=== PATIENT | male | born 1965 | race Caucasian/White ===

== ENCOUNTER 2016-11-22 08:53 | Day surgery (SDC) | payer BC ==
[~2016-11-22] VITALS: Ht 185.4 cm; Wt 140.6 kg
[~2016-11-22 08:53] MED LIST: CEFAZOLIN 2GM PREMIX 50 ML IV PRN; FENTANYL PF 100 MCG/2 ML VIAL. IV PRN; HYDROMORPHONE 2 MG/ML VIAL. IV PRN; IV RINGERS,LACTATED 1000ML 1,000 ML IV SCH; LIDOCAINE 1% 1 ML SYRINGE. ID PRN; LISI1TAB5 PO; MORPHINE SULFATE 2 MG/ML DISP.SYRIN. IV PRN; ONDANSETRON PF 4 MG/2 ML VIAL. IV PRN; PROCHLORPERAZINE 10 MG/2 ML VIAL. IV PRN
[2016-11-22] MEDS ORDERED: MIDAZOLAM HCL 2 MG/2 ML VIAL. ONE (09:08)
[2016-11-22] MEDS ORDERED: DEXAMETHASONE SOD PHOS 20 MG/5 ML VIAL. ONE (09:08)
[2016-11-22] MEDS ORDERED: ONDANSETRON PF 4 MG/2 ML VIAL. ONE (09:08)
[2016-11-22] MEDS ORDERED: PROPOFOL 40 ML IV ONE (09:08)
[2016-11-22] MEDS ORDERED: FENTANYL PF 100 MCG/2 ML VIAL. ONE (09:08)
[2016-11-22] MEDS ORDERED: LIDOCAINE 2% 100 MG/5 ML DISP.SYRIN. ONE (09:08)
[2016-11-22] MEDS ORDERED: ROCURONIUM 50 MG/5 ML VIAL. ONE (09:09)
[2016-11-22] MEDS ORDERED: SUCCINYLCHOLINE 200 MG/10 ML VIAL. ONE (09:09)
[2016-11-22] MEDS ORDERED: BUPIVAC MPF-EPI 0.5%-1:200000 30 ML VIAL. ONE (09:42)
[2016-11-22] MEDS ORDERED: ONDA4TAB7 PO (10:28)
[2016-11-22] MEDS ORDERED: OXYC-323 PO (10:28)
[2016-11-22] MEDS ORDERED: MORPHINE SULFATE 10 MG/ML VIAL. ONE (10:40)
[2016-11-22] MEDS ORDERED: PHENYLEPHRINE in 0.9% NACL PF 1 MG/10 ML DISP.SYRIN. IV ONE (10:54)
[2016-11-22] MEDS ORDERED: GLYCOPYRROLATE 1 MG/5 ML VIAL. ONE (10:56)
[2016-11-22] MEDS ORDERED: NEOSTIGMINE METHYLSULFATE 5 MG/5 ML SYRINGE. ONE (10:56)
[2016-11-22 12:07] VITALS: BP 107/61
--- NOTE | 2016-11-22 15:57 | PDOC ---
BRIEF OPERATIVE NOTE Pre-Op Diagnosis umb hernia umb hernia repair with mesh marialuisa magaña ebl 5 ivf 1000 almin well to rr stable. RUBIO OROZCO MD Nov 22, 2016 15:57
--- NOTE | 2016-11-22 23:57 | OP ---
DATE OF SURGERY: 11/22/2016 PREOPERATIVE DIAGNOSIS: Umbilical hernia. POSTOPERATIVE DIAGNOSIS: Umbilical hernia. PROCEDURE: Umbilical hernia repair with mesh. SURGEON: Rubio Orozco M.D. ANESTHESIA: General. ESTIMATED BLOOD LOSS: 5 mL. IV FLUIDS: 1000 mL. INDICATIONS: The patient is a 51-year-old male who presents with a symptomatic umbilical hernia that he would like to have repaired. FINDINGS: He had a 1 cm fascial defect, it was repaired with a 4.3 cm Bard Ventralex patch. DESCRIPTION OF PROCEDURE: After informed consent was obtained, the patient was taken to the operating room and placed in supine position. After adequate induction of general anesthesia, he was prepped and draped in the usual sterile fashion. An infraumbilical skin incision was made with a scalpel, subcutaneous tissues dissected with a tonsil. Using a tonsil, the umbilical stalk was encircled and the dermis of the umbilicus was excised from the hernia sac with cautery. The hernia sac contained preperitoneal fat. The preperitoneal fat was reduced through the hernia defect and the under surface of the fascia was cleared with cautery to open up the preperitoneal space. A 4.3 cm Bard Ventralex patch was placed through the defect beneath the level of the fascia. It was sutured to the fascia with 0 Prolene U sutures so that the knots were buried. The fascial defect was closed over the mesh with a 0 Prolene cumasx-sa-avigz fashion. The area was injected with local anesthetic and then the wound was closed. The dermis of the umbilicus was tacked back to the fascia with 2-0 Vicryl sutures. Skin was closed with 4-0 Monocryl in subcuticular fashion. The wound was hemostatic as it was being closed. Sterile dressings were placed, which consisted of Mastisol, Steri-Strips, a tonsil ball and covered with a Tegaderm. He tolerated the procedure well. There were no apparent complications. He was then transferred in stable condition to the recovery room. RUBIO OROZCO MD DR: RADHA/michelle JOB#: [id number] / [id number] BELLA Michelle MD MTDD
== END 2016-11-22 12:27 | disposition home or self-care (01) ==
LOC: SURG 08:53
PROVIDERS: ATTEND Surgery
DX: K42.9 Umbilical hernia without obstruction or gangrene (principal); I10 Essential (primary) hypertension; E66.9 Obesity, unspecified; Z72.89 Other problems related to lifestyle; Z72.0 Tobacco use
CPT/HCPCS: 49585; A4215; J0330; J0690; J1100; J2250; J2270; J2370; J2405; J2704; J2710; J3010; J3490

== ENCOUNTER → 2021-08-08 | Outpatient (CLI) | payer BC ==
[~2021-08-08] MED LIST changes: +ASCO500T4 PO; +ASPI-630 PO; -CEFAZOLIN 2GM PREMIX 50 ML IV PRN; -FENTANYL PF 100 MCG/2 ML VIAL. IV PRN; +GARL10002 PO; -HYDROMORPHONE 2 MG/ML VIAL. IV PRN; +IBUP800T19 PO; -IV RINGERS,LACTATED 1000ML 1,000 ML IV SCH; -LIDOCAINE 1% 1 ML SYRINGE. ID PRN; +LISI1TAB37 PO; -LISI1TAB5 PO; -MORPHINE SULFATE 2 MG/ML DISP.SYRIN. IV PRN; +MULT-121 PO; +OMEG100021 PO; +ONDA4TAB7 PO; -ONDANSETRON PF 4 MG/2 ML VIAL. IV PRN; +OXYC1TAB15 PO; +PREG50CA91 PO; -PROCHLORPERAZINE 10 MG/2 ML VIAL. IV PRN; +TRAM50TA PO
--- NOTE | 2021-08-08 15:40 | EKG ---
[facility] [address] [place] [address] Test Date: 2021-08-08 Test Time: 15:38:25 Pat Name: JARED FARIAS Department: Room: Gender: Supervisor Dry Cleaning: KINGSLEY : 1965 Requested By: KERI PEREZ Order Number: [id number] Reading MD: Aristeo Garcia Measurements Intervals [place] Rate: 65 P: 45 SD: 164 QRS: 23 QRSD: 92 T: 15 QT: 376 QTc: 392 Interpretive Statements SINUS RHYTHM R-S TRANSITION ZONE IN V LEADS DISPLACED TO THE RIGHT MILD NON SPECIFIC ST CHANGES IN THE INFERIOR LEADS Electronically Signed On 08-10-2021 13:28:46 DISTRIBUTOR CLEANER by Aristeo Garcia
[2021-08-08 16:08] LABS: BASO # 0.1 x10^3/uL (0.0-0.2); BASO % 1 % (0-3); EOS # 0.1 x10^3/uL (0.0-0.7); EOS % 1 % (0-3); HEMATOCRIT 44.7 % (39.0-53.0); HEMOGLOBIN 15.2 g/dL (13.0-17.5); LYMPH # 1.7 x10^3/uL (1.0-4.8); LYMPH % 21 % (24-48); MEAN CORPUSCULAR HEMOGLOBIN 30 pg (25-35); MEAN CORPUSCULAR HGB CONC 34 g/dL (31-37); MEAN CORPUSCULAR VOLUME 88 fL (79-100); MONO # 0.7 x10^3/uL (0.0-1.1); MONO % 9 % (0-9); NEUT # 5.5 x10^3/uL (1.8-7.7); NEUT % 68 % (31-73); PLATELET COUNT 199 x10^3/uL (140-400); RED BLOOD COUNT 5.05 x10^6/uL (4.30-5.70); RED CELL DISTRIBUTION WIDTH 13.7 % (11.5-14.5)
[2021-08-08 16:32] LABS: ALBUMIN 4.1 g/dL (3.4-5.0); ALBUMIN/GLOBULIN RATIO 1.4 (1.0-1.7); CREATININE 0.8 mg/dL (0.7-1.3); GFR 100.7; POTASSIUM 4.2 mmol/L (3.5-5.1); TOTAL BILIRUBIN 0.5 mg/dL (0.2-1.0); TOTAL PROTEIN 7.1 g/dL (6.4-8.2)
--- NOTE | 2021-08-10 11:00 | NUR ---
Notified the patient and Jess ROD at Dr Redmond's office regarding positive MRSA in nares. Called in the bactroban and chlorhexidine to patient's pharmacy, [facility]. Instructed patient to start the 5 day treatment on 08/17.
== END ==
LOC: SURGPAT 13:23
PROVIDERS: ATTEND Neurological Surgery
DX: Z01.818 Encounter for other preprocedural examination (principal); M48.04 Spinal stenosis, thoracic region; M54.14 Radiculopathy, thoracic region; Z86.79 Personal history of other diseases of the circulatory system
CPT/HCPCS: 36415; 80053; 85025; 87641; 93005

== ENCOUNTER 2021-08-22 06:57 | Day surgery (SDC) | payer BC ==
[2021-08-09 11:10] VITALS: BP 136/78
[~2021-08-22] VITALS: Ht 182.9 cm; Wt 138.1 kg
[~2021-08-22 06:57] MED LIST changes: +BUPIVACAINE-EPI 0.5% 30 ML VIAL KIT. ONE; +DEXAMETHASONE SOD PHOS 4 MG/ML VIAL ONE; +GELATIN SPONGE SIZE 100. ONE; +HYDROmorphone 2 MG/ML VIAL IVP PRN; +IV RINGERS,LACTATED 1000ML 1,000 ML IV SCH; +KETAMINE HCL IN NACL, ISO-OSM 50 MG/5 ML SYRINGE ONE; +KETOROLAC 60 MG/2 ML VIAL. ONE; +LIDOCAINE 2% PF 5 ML VIAL. ONE; +MIDAZOLAM HCL/PF 2 MG/2 ML VIAL. ONE; +MORPHINE SULFATE 2 MG/ML INJ. IVP PRN; +ONDANSETRON PF 4 MG/2 ML VIAL. ONE; +PHENYLEPHRINE 10 MG/ML VIAL. ONE; +PROCHLORPERAZINE 10 MG/2 ML VIAL. IVP PRN; +PROPOFOL 10 MG/ML (20ML) VIAL. IV ONE; +PROPOFOL 50 ML IV ONE; +REMIFENTANIL 1 MG VIAL. IV ONE; +ROCURONIUM 50 MG/5 ML VIAL. ONE; +SEVOFLURANE > 120 MINUTES. IH ONE; +THROMBIN TOPICAL 20,000 UNIT SPRAY.SYRN KIT TP ONE; +ceFAZolin SODIUM 1 GM in IV NORMAL SALINE 1000ML BAG 1,000 ML IRR ONE; +ceFAZolin SODIUM 3 GM in IV DEXTROSE 5% 100ML 100 ML IV PRN; +fentaNYL PF VIAL 100 MCG/2 ML VIAL IVP PRN; +fentaNYL PF VIAL 100 MCG/2 ML VIAL ONE
[2021-08-22 07:23] VITALS: BP 132/66
[2021-08-22] MEDS ORDERED: [UNRECOGNIZED DRUG - SUPPLY] EXT (07:34)
[2021-08-22] MEDS ORDERED: BACTROBAN NAS (07:34)
[2021-08-22] MEDS ORDERED: GLYCOPYRROLATE 1 MG/5 ML VIAL. ONE (07:41)
[2021-08-22] MEDS ORDERED: NEOSTIGMINE METHYLSULFATE 5 MG/5 ML SYRINGE. ONE (07:41)
[2021-08-22] MEDS ORDERED: PROPOFOL 50 ML IV ONE ×2 (07:42→09:05)
[2021-08-22] MEDS ORDERED: VANCOMYCIN 1GM IVPB FOR OMNI 250 ML IV PRN (08:00)
[2021-08-22] MEDS ORDERED: HYDROmorphone 2 MG/ML VIAL ONE (09:38)
--- NOTE | 2021-08-22 10:14 | HP ---
DATE OF SERVICE: 08/21/2021 ADMIT DATE: 08/22/2021 PREOPERATIVE HISTORY AND PHYSICAL HISTORY OF PRESENT ILLNESS: The patient is a pleasant 56-year-old who has problems with a thoracic radiculopathy. He has known foraminal narrowing at T8-T9 on the right. His pain radiates to the lower thoracic spine and radiates into his right flank and then into the right anterior abdominal region above his umbilicus. There is no problem on the left side. He said that he had an epidural steroid injection recently that helped him for about 2 weeks only. He feels his pain is severe. It can reach 10/10. The problem began in 11/2020. He is taking Lyrica and ibuprofen as well as tramadol. PAST MEDICAL HISTORY: Hypertension. PAST SURGICAL HISTORY: Denies previous surgery. SOCIAL HISTORY: Employed as a quick service technician. Uses chewing tobacco. Drinks alcohol 1-2 times per week. ALLERGIES: No known drug allergies. CURRENT MEDICATIONS: Lisinopril, ibuprofen, tramadol, Lyrica. FAMILY HISTORY: Noncontributory. REVIEW OF SYSTEMS: A 12-point review of systems was performed and is noncontributory except that mentioned above. PHYSICAL EXAMINATION: GENERAL: Alert, pleasant, in no acute distress. HEENT: Head is normocephalic, atraumatic. SKIN: Warm and dry. MUSCULOSKELETAL: Lumbar paraspinal muscle bulk is normal, restricted range of motion of the lumbar spine, [id number] tenderness of the thoracolumbar spine with palpation, normal range of motion of the lower extremities bilaterally. EXTREMITIES: No clubbing, cyanosis or edema. NEUROLOGIC: Alert and oriented x 3. Strength is 5/5 in the lower extremities bilaterally. Sensory was intact to light touch in the lower extremities bilaterally. Reflexes were present and symmetric in the lower extremities bilaterally. Normal gait. IMAGING: I reviewed an MRI scan of the thoracic spine. On that study, there are 2 areas of foraminal narrowing at T8-9 and at T3-4. ASSESSMENT AND PLAN: I feel the foraminal narrowing at T8-9 on the right is responsible for his pain. I recommended a foraminal decompression. I explained that he could go through surgery and be not improved. I outlined the surgery including the technique, the risks involved and the expected postoperative course. He understands and would like to go ahead. ERIN/ALKA/ARELY DR: Rocael TID: [id number]
[2021-08-22] MEDS ORDERED: HYDR-2761 PO (12:03)
[2021-08-22] MEDS ORDERED: DOCU-109 PO (12:03)
[2021-08-22] MEDS ORDERED: METH-562 PO (12:03)
--- NOTE | 2021-08-22 12:05 | DISCH ---
DISCHARGE INSTRUCTIONS Condition on Discharge Condition on Discharge: Stable Activity After Discharge Activity Instructions for Disc: Activity as tolerated, Avoid exertion Other activity instructions: no driving for a week Bathing Instructions: Shower-keep dressing dry Lifting Instructions after Dis: No heavy lifting, No pulling or pushing, Do not lift >10 pounds Diet after Discharge Additional Diet Restrictions: resume home diet Wound Incision Care Wound/Incision Care: Ice to area for comfort Other wound/incision instructi: may remove dressing in 48 hours if dry , no soaking Wound Care Equipment: Sutures/martha Contacting the after DC Call your doctor for: Concerns you may have Follow-Up Follow up with: Dr. Perez's nurse in 2 weeks [phone] KERI PEREZ MD Aug 22, 2021 12:05
[2021-08-22] MEDS ORDERED: HYDROcodone/APAP 5/325MG 1 TAB TABLET PO ONE (12:30)
[2021-08-22] MEDS ORDERED: fentaNYL PF VIAL 100 MCG/2 ML VIAL ONE (12:34)
[2021-08-22] MEDS: fentaNYL PF VIAL 100 MCG/2 ML VIAL IVP PRN ×2 (12:36→12:48)
[2021-08-22] MEDS ORDERED: HYDROcodone/APAP 5/325MG 1 TAB TABLET ONE (12:42)
[2021-08-22 13:55] VITALS: BP 130/73
--- NOTE | 2021-08-26 17:03 | OP ---
DATE OF SURGERY: 08/22/2021 PREOPERATIVE DIAGNOSIS: Thoracic radiculopathy with neural foraminal narrowing, right T8-9. POSTOPERATIVE DIAGNOSIS: Thoracic radiculopathy with neural foraminal narrowing, right T8-T9. OPERATION PERFORMED: Hemilaminotomy and transfacet decompression of the right exiting root at T8-9. The operation was done with multimodality monitoring including EMG monitoring, SSEP monitoring, fluoroscopy, microscopic dissection. SURGEON: Trevon Redmond M.D. DELIVERY SUPERVISOR: VIOLA Powell assisted with the surgery. OPERATIVE INDICATIONS: The patient is a pleasant 56-year-old man who developed relatively severe pain, which radiated from his back around into his right flank and the upper abdominal region. On imaging studies, he was found to have foraminal narrowing at T8-9 and after considerable discussion and failure to improve with conservative measures, I recommended surgery. I explained to him that on occasion, we could decompress the nerve root in this type of situation and the pain could continue. I spoke about the technique of the operation. I spoke about the risks of the surgery. He understood he wished to go ahead. DESCRIPTION OF PROCEDURE: Following general endotracheal anesthesia, the patient was positioned prone on the Mc table. Thoracic region was prepped and draped in the standard fashion. TIFFANIE hose and AV impulse boots were applied for DVT prophylaxis. The microscope was draped, fluoroscopy was draped and brought into the field. Monitoring was established. Ancef 2 grams given less than one hour prior to initiation of surgery. Using fluoroscopic guidance, then I counted from L5 up to T8-9, placed spinal needles and confirmed my position. I made an incision then in the midline at T8-9 and reflected the paraspinal muscles and placed a Lares microdisk retractor. I again confirmed my position by counting. At this point then, I brought in the microscope and high-speed air drill and burred down a laminotomy and using the 2 mm micro Kerrison, I worked laterally by thinning the bone and following the nerve root out. There was considerable narrowing of the foramen. The nerve root was definitely under pressure and as I worked laterally, I was able to relieve that pressure and free up the nerve root. I was able to easily then pass the blunt hook out without any resistance. Hemostasis was excellent throughout the case. I irrigated copiously with antibiotic solution. I confirmed my position again and then I decompressed the correct level and then I closed the wound in layers after further irrigation and the skin was closed with skin martha. I felt the surgery went very well. MARQUITA/HUSAM/FAM DR: Johnna TID: [id number] MTDNancy
== END 2021-08-22 14:07 | disposition home or self-care (01) ==
LOC: SURG 06:57
PROVIDERS: ATTEND Neurological Surgery
DX: M54.14 Radiculopathy, thoracic region (principal); M48.04 Spinal stenosis, thoracic region; I10 Essential (primary) hypertension; G47.30 Sleep apnea, unspecified; E66.9 Obesity, unspecified; M19.90 Unspecified osteoarthritis, unspecified site; Z79.82 Long term (current) use of aspirin; Z79.899 Other long term (current) drug therapy; Z87.891 Personal history of nicotine dependence; Z72.89 Other problems related to lifestyle; Z98.890 Other specified postprocedural states; Z68.41 Body mass index [BMI] 40.0-44.9, adult
CPT/HCPCS: 63046; 88304; 88311; 97161; A4364; A4556; A4930; A6254; A6258; J0690; J1100; J1170; J1885; J2250; J2370; J2405; J2704; J2710; J3010; J3370; J3490; J7030; 76000; A4222